=== PATIENT | male | born 1960 | race Caucasian/White ===

== ENCOUNTER 2017-12-12 12:53 | Emergency (ER) | payer OTHER ==
[~2017-12-12] VITALS: Ht 188 cm; Wt 113.4 kg
[2017-12-12] MEDS ORDERED: TOPROL XL100 M1 (13:28)
[2017-12-12] MEDS ORDERED: AMLODIPINE BESYL5 MG (13:29)
[2017-12-12] MEDS ORDERED: ASPIR 8181 MG (13:30)
[2017-12-12] MEDS ORDERED: LIPITOR40 MG (13:30)
[2017-12-12] MEDS ORDERED: NORFLEX100MG PO (19:20)
[2017-12-12] MEDS ORDERED: KETO10TA2 PO (19:20)
== END 2017-12-12 20:12 | disposition home or self-care (01) ==
LOC: ER 12:53
DX: M25.562 Pain in left knee (principal)